=== PATIENT | male | born 2000 | race Caucasian/White ===

== ENCOUNTER → 2019-06-06 | Outpatient (CLI) | payer BC ==
--- NOTE | 2019-06-06 19:05 | REP ---
HISTORY: Cough. COMPARISON: None. FINDINGS: The superior mediastinal structures are midline. The cardiac silhouette is unremarkable in size, shape and position. The diaphragmatic surfaces of the lungs are regular and the costophrenic angles are clear. The pulmonary costa are clear. The imaged osseous structures are intact. IMPRESSION: There is no acute cardiopulmonary disease. Electronically Signed by Óscar Cordero DO 06/06/2019 07:41 P
== END ==
LOC: M ADAMS 17:44
PROVIDERS: ATTEND Physician Assistant
DX: R05 Cough (principal)